=== PATIENT | male | born 1970 | race Caucasian/White ===

== ENCOUNTER 2017-10-01 10:36 | Emergency (ER) | payer OTHER ==
[2017-10-01 10:48] VITALS: BP 114/77
[2017-10-01] MEDS ORDERED: Fluorescein Sodium TOPICAL* 1 MG TEST OPHTHALMIC ONE ×2 (10:59→11:08)
[2017-10-01] MEDS ORDERED: BSS OPTH.SOL* BTL OPHTHALMIC ONE (11:03)
[2017-10-01] MEDS ORDERED: BSS OPTH.SOL* BTL ONE (11:06)
[2017-10-01] MEDS ORDERED: Fluorescein Sod TOPICAL 0.6* 0.6 MG TEST OPHTHALMIC ONE ×2 (11:06→11:10)
--- NOTE | 2017-10-01 11:15 | UC ---
Eye Complaint HPI - HPI Summary HPI Summary: Patient complains of left eye redness after wearing contacts on - History of Current Complaint Chief Complaint: UCEye Stated Complaint: L EYE IRRITATION Time Seen by Provider: 10/01/17 10:58 Hx Obtained From: Patient Onset/Duration: Sudden Onset, Lasting Days - 3 Severity Initially: Mild Severity Currently: Mild Pain Intensity: 3 Pain Scale Used: 0-10 Numeric Location of Injury: Conjunctiva Alleviating Factor(s): Nothing Associated Signs And Symptoms: Positive: Drainage (Purulent) - Allergies/Home Medications Allergies/Adverse Reactions: Allergies Allergy/AdvReac Type Severity Reaction Status Date / Time No Known Allergies Allergy Verified 10/01/17 10:49 PMH/Surg Hx/FS Hx/Imm Hx Previously Healthy: Yes - Surgical History Surgical History: Yes Surgery Procedure, Year, and Place: Lower back steroid injections[2004], varicose vein removal-left leg[2000?] - Family History Known Family History: Positive: None - Social History Occupation: Employed Full-time Lives: With Family Alcohol Use: Occasionally Substance Use Type: None Smoking Status (MU): Never Smoked Tobacco Review of Systems Constitutional: Negative Skin: Negative Eyes: Eye Redness - OS ENT: Negative Respiratory: Negative Cardiovascular: Negative Gastrointestinal: Negative Genitourinary: Negative Motor: Negative Neurovascular: Negative Musculoskeletal: Negative Neurological: Negative Psychological: Negative Is Patient Immunocompromised?: No All Other Systems Reviewed And Are Negative: Yes Physical Exam Triage Information Reviewed: Yes Appearance: Well-Appearing, No Pain Distress, Well-Nourished Vital Signs: Initial Vital Signs Temp 97.4 F 10/01/17 10:43 Pulse 68 10/01/17 10:43 Resp 18 10/01/17 10:43 BP 114/77 10/01/17 10:43 Pulse Ox 99 10/01/17 10:43 Vital Signs Reviewed: Yes Eye Exam: Normal Eyes: Positive: Conjunctiva Inflamed - os, Discharge, Other: - Left eye stained with fluorescein dye no dye uptake noted ENT Exam: Normal ENT: Positive: Normal ENT inspection, Hearing grossly normal, Pharynx normal, TMs normal, Uvula midline. Negative: Nasal congestion, Nasal drainage, Trismus , Muffled voice, Hoarse voice, Dental tenderness, Sinus tenderness Dental Exam: Normal Neck exam: Normal Neck: Positive: Supple, Nontender Respiratory Exam: Normal Respiratory: Positive: Chest non-tender, No respiratory distress, No accessory muscle use Cardiovascular Exam: Normal Cardiovascular: Positive: RRR, Pulses Normal, Brisk Capillary Refill Musculoskeletal Exam: Normal Musculoskeletal: Positive: Strength Intact, ROM Intact, No Edema Neurological Exam: Normal Neurological: Positive: Alert, Muscle Tone Normal Psychological Exam: Normal Skin Exam: Normal Eye Complaint Course/Dx - Course Course Of Treatment: Patient discharged to home and advised not use contact lenses until course of antibiotic drops is finished plus additional 24 hours along with erythema has cleared up patient advised if not significantly improved in 24 hours to follow up with optometry provider patient discharged with Cipro eyedrops 1 drop in his left eye I every 2 hours while awake for the next 2 days the every 4 hours while awake for 3 days - Differential Dx/Diagnosis Provider Diagnoses: OS Conjuctivitis Discharge - Discharge Plan Condition: Stable Disposition: HOME Prescriptions: Ciprofloxacin 0.3% OPTH.ELLIE* [Cipro 0.3% Opth*] 1 drop LEFT EYE Q2H #1 btl Patient Education Materials: How to Use Eye Drops (ED), Conjunctivitis (ED) Referrals: Francesco Benoit MD [Primary Care Provider] - Additional Instructions: Follow with eye care provider if needed. Do not use contact lenses until symptoms have resolved +24 hours
== END 2017-10-01 11:28 | disposition home or self-care (01) ==
LOC: UCEAST 10:36
DX: H10.32 Unspecified acute conjunctivitis, left eye (principal)
CPT/HCPCS: 99212; A9270-GY; G0463